=== PATIENT | male | born 1950 | race Caucasian/White ===

== ENCOUNTER 2016-07-11 11:29 | Emergency (ER) | payer OTHER, BC ==
[2016-07-11 11:54] VITALS: TEMP 97.9; BMI 33.9
[2016-07-11 12:31] LABS: BASOPHIL 0.9 % (0-2.0); EOSINOPHIL 5.6 % (0-4.5); MCH 26.8 pg (25.7-33.7); MCHC 33.1 g/dl (32.0-35.9); MEAN CELL VOLUME 81.1 fl (80-96); MEAN PLT VOLUME 6.6 fl (7.5-11.1); PLATELET COUNT 265 K/MM3 (134-434); RDW 15.3 % (11.9-15.9)
--- NOTE | 2016-07-11 12:32 | PDOC ---
History of Present Illness - General History Source: Patient Exam Limitations: No Limitations - History of Present Illness Initial Comments: 07/11/16 13:13 The patient is a 66 year old male with a significant past medical history of diabetes, hypertension, and hyperlipidemia, sent by PCP to the Emergency Department with elevated potassium levels. The patient reports that he had bloodwork done with his PCP and was found to have elevated potassium levels. The patient denies previously having elevated potassium levels. He has no complaints at this time and admits that he feels well. The patient denies muscle fatigue. Patient denies chest pain, shortness of breath, and palpitations. Patient denies kidney problems. Patient denies edema. Patient denies nausea, vomiting, and diarrhea. PCP: Dr. Wiley <Brenda Najera - Last Filed: 07/11/16 13:14> <Maricruz Walter - Last Filed: 07/11/16 13:48> - General Chief Complaint: Revisit, Lab Variance Stated Complaint: ABNORMAL LAB, PCP SENT Past History <Brenda Najera - Last Filed: 07/11/16 13:14> - Past Medical History Anemia: No Asthma: No Cancer: No Cardiac Disorders: No CVA: No COPD: No Dementia: Yes (NIDDM) Diabetes: Yes (NIDDM) Disorders: No HTN: Yes Hypercholesterolemia: Yes Liver Disease: No Seizures: No Thyroid Disease: No - Surgical History Cholecystectomy: No Lung Surgery: No - Psycho/Social/Smoking Cessation Hx Suicidal Ideation: No Smoking History: Never smoked Information on smoking cessation initiated: No Hx Alcohol Use: Yes (RARE) Drug/Substance Use Hx: No Substance Use Type: None Hx Substance Use Treatment: No <Maricruz Walter - Last Filed: 07/11/16 13:48> - Past Medical History Allergies/Adverse Reactions: Allergies Allergy/AdvReac Type Severity Reaction Status Date / Time No Known Allergies Allergy Verified 07/11/16 11:55 Home Medications: Ambulatory Orders Aspirin [Ecotrin] 81 mg PO DAILY 09/06/14 Cholecalciferol (Vitamin D3) [Vitamin D] 250 unit PO DAILY 09/06/14 Docosahexanoic Acid/Epa [Fish Oil Softgel] 1 each PO DAILY 09/06/14 Metformin HCl [Glucophage -] 500 mg PO BID 09/06/14 Ubidecarenone [Co Q-10] 10 mg PO DAILY 09/06/14 Atorvastatin Ca [Lipitor] 20 mg PO HS 07/11/16 Losartan Potassium 25 mg PO DAILY 07/11/16 Review of Systems - Review of Systems Able to Perform ROS?: Yes Comments:: 07/11/16 13:13 CONSTITUTIONAL: Absent: fever, chills, diaphoresis, generalized weakness, malaise, loss of appetite HEENT: Absent: rhinorrhea, nasal congestion, throat pain, throat swelling, difficulty swallowing, mouth swelling, ear pain, eye pain, visual Changes CARDIOVASCULAR: Absent: chest pain, syncope, palpitations, irregular heart rate, lightheadedness , peripheral edema RESPIRATORY: Absent: cough, shortness of breath, dyspnea with exertion, orthopnea, wheezing, stridor, hemoptysis GASTROINTESTINAL: Absent: abdominal pain, abdominal distension, nausea, vomiting, diarrhea, constipation, melena, hematochezia GENITOURINARY: Absent: dysuria, frequency, urgency, hesitancy, hematuria, flank pain, genital pain MUSCULOSKELETAL: Absent: myalgia, arthralgia, joint swelling SKIN: Absent: rash, itching, pallor HEMATOLOGIC/IMMUNOLOGIC: Absent: easy bleeding, easy bruising, lymphadenopathy, frequent infections ENDOCRINE: Absent: unexplained weight gain, unexplained weight loss, heat intolerance, cold intolerance NEUROLOGIC: Absent: headache, focal weakness or paresthesias, dizziness, unsteady gait, seizure, mental status changes, bladder or bowel incontinence PSYCHIATRIC: Absent: anxiety, depression, suicidal or homicidal ideation, hallucinations. <Brenda Najera - Last Filed: 07/11/16 13:14> *Physical Exam - Vital Signs Last Vital Signs Temp Pulse Resp BP Pulse Ox 97.9 F 67 18 145/81 98 07/11/16 11:50 07/11/16 11:50 07/11/16 11:50 07/11/16 11:50 07/11/16 11:50 - Physical Exam Comments: 07/11/16 13:13 GENERAL: Well developed, well nourished. Awake and alert. In no acute distress. HEENT: Normocephalic, atraumatic. PERRLA, EOMI. No conjunctival pallor. Sclera are non- icteric. Moist mucous membranes. Oropharynx is clear. NECK: Supple. Full ROM. No JVD. Carotid pulses 2+ and symmetric, without bruits. No thyromegaly. No lymphadenopathy. CARDIOVASCULAR: Regular rate and rhythm. No murmurs, rubs, or gallops. Distal pulses are 2+ and symmetric. PULMONARY: No evidence of respiratory distress. Lungs clear to auscultation bilaterally. No wheezing, rales or rhonchi. ABDOMINAL: Obese but nontender. Soft. Non-distended. No rebound or guarding. No organomegaly. Normoactive bowel sounds. MUSCULOSKELETAL Normal range of motion at all joints. No bony deformities or tenderness. No CVA tenderness. EXTREMITIES: No cyanosis. No clubbing. No edema. No calf tenderness. SKIN: Warm and dry. Normal capillary refill. No rashes. No jaundice. NEUROLOGICAL: Alert, awake, appropriate. Cranial nerves 2-12 intact. No deficits to light touch and temperature in face, upper extremities and lower extremities. No motor deficits in the in face, upper extremities and lower extremities. Normoreflexic in the upper and lower extremities. Normal speech. Toes are downgoing bilaterally. PSYCHIATRIC: Cooperative. Good eye contact. Appropriate mood and affect. <Brenda Najera - Last Filed: 07/11/16 13:14> - Vital Signs Last Vital Signs Temp Pulse Resp BP Pulse Ox 97.9 F 67 18 145/81 98 07/11/16 11:50 07/11/16 11:50 07/11/16 11:50 07/11/16 11:50 07/11/16 11:50 <Maricruz Walter - Last Filed: 07/11/16 13:48> Heart Score/ECG Review #1 General ECG Interpretation: Sinus Rhythm, Normal Rate (69), Normal Intervals, No acute ischemic changes <Maricruz Walter - Last Filed: 07/11/16 13:48> ED Treatment Course - LABORATORY CBC & Chemistry Diagram: 07/11/16 12:28 07/11/16 12:20 - ADDITIONAL ORDERS Additional order review: 07/11/16 12:28 RBC 6.24 H MCV 81.1 MCHC 33.1 RDW 15.3 MPV 6.6 L Neutrophils % 64.0 Lymphocytes % 21.6 Monocytes % 7.9 Eosinophils % 5.6 H Basophils % 0.9 <Brenda Najera - Last Filed: 07/11/16 13:14> - LABORATORY CBC & Chemistry Diagram: 07/11/16 12:28 07/11/16 12:20 <Maricruz Walter - Last Filed: 07/11/16 13:48> Medical Decision Making - Medical Decision Making 07/11/16 12:30 66 yo M ho DM HTN HLD here wtih elevated potassium per routine outpt labs. no known kidney disease. no c/o muscle pain , cramping, no f/c no cp no sob . no other complaints. pcp dr. Merino. on exam awake, comfortable. lungs clear, heart regular, abd soft Nt. ext no edema. plan: ro lab hemolysis, r/o anemia, ARF and hyperkalemai. ekg r/o changes. will d/w dr. junior. 07/11/16 13:[address] Lee to inform potassium normal will dc home with followup given copy of labs. <Maricruz Walter - Last Filed: 07/11/16 13:48> *DC/Admit/Observation/Transfer - Attestations Scribe Attestion: 07/11/16 13:14 Documentation prepared by Brenda Najera, acting as certified medical coding specialist for Maricruz Walter MD. <Brenda Najera - Last Filed: 07/11/16 13:14> - Discharge Dispostion Admit: No <Maricruz Walter - Last Filed: 07/11/16 13:48> Diagnosis at time of Disposition: Well adult - Referrals Referrals: Raciel Wiley MD [Primary Care Provider] - - Patient Instructions Printed Discharge Instructions: Hyperkalemia Additional Instructions: follow up with dr. Esquivel next week. call to schedule. return for any problems or concerns.
[2016-07-11 13:13] LABS: ALK PHOS 96 U/L (45-117); ANION GAP 7 (8-16); BILIRUBIN,TOTAL 0.5 mg/dL (0.2-1.0); CALCIUM 9.3 mg/dL (8.5-10.1); CO2 29 mmol/L (21-32); CREATININE 0.9 mg/dL (0.7-1.3); GLUCOSE,RANDOM 92 mg/dL (74-106); SGOT/AST 20 U/L (15-37); SGPT/ALT 52 U/L (12-78); TOT PROT 7.5 g/dl (6.4-8.2)
[2016-07-11 14:16] VITALS: BP 130/83; PULSE 61
--- NOTE | 2016-07-13 10:05 | EKG ---
Test Reason : Blood Pressure : / mmHG Vent. Rate : 069 BPM Atrial Rate : 069 BPM P-R Int : 170 ms QRS Dur : 098 ms QT Int : 374 ms P-R-T Axes : 065 035 049 degrees QTc Int : 400 ms SINUS RHYTHM WITH MARKED SINUS ARRHYTHMIA OTHERWISE NORMAL ECG WHEN COMPARED WITH ECG OF 20-AUG-1997 19:48, NO SIGNIFICANT CHANGE WAS FOUND Confirmed by CRIS AVENDANO MD ([id number]) on 07/13/2016 10:05:04 AM Referred By: Confirmed By:CRIS AVENDANO MD
== END 2016-07-11 14:17 | disposition home or self-care (01) ==
LOC: JER 11:29
DX: Z00.00 Encounter for general adult medical examination without abnormal findings (principal); I10 Essential (primary) hypertension; E11.9 Type 2 diabetes mellitus without complications; Z79.84 Long term (current) use of oral hypoglycemic drugs; E78.5 Hyperlipidemia, unspecified
CPT/HCPCS: 36415; 80053; 85025; 93005; 93010; 99283-25

== ENCOUNTER 2019-03-22 13:50 | Inpatient (IN) | payer OTHER, BC ==
--- NOTE | 2019-03-22 14:17 | PDOC ---
Rapid Medical Evaluation Chief Complaint: Headache Time Seen by Provider: 03/22/19 14:10 Medical Evaluation: Allergies Allergy/AdvReac Type Severity Reaction Status Date / Time No Known Allergies Allergy Verified 07/11/16 11:55 03/22/19 14:11 Pt presents for headache and double vision. He states he was seen by his bag shaker Dr. Llanos. Pt then developed headaches. Requesting MRI to r/o stroke/sudden vision loss given new onset headache. Headache currently 10. Exam: PERRLA, EOMI. Orders: labs, IV Pt to proceed to the ER for further evaluation Discharge Disposition - Diagnosis Double vision - Referrals - Patient Instructions - Post Discharge Activity
--- NOTE | 2019-03-22 14:51 | PDOC ---
History of Present Illness - General Chief Complaint: Headache Stated Complaint: HEADACHES Time Seen by Provider: 03/22/19 14:10 History Source: Patient Exam Limitations: No Limitations - History of Present Illness Initial Comments: 68 yo M with a hx of HLD, HTN, NIDDM, and polycythemia vera (per the patient it is genetic; blood letting since last summer) presents to the emergency department with double vision that has been ongoing since Wednesday (03/18/2019) . Per the patient, he says it began while he was driving in his car. He endorses having double vision when looking far away with resolution when looking at objects close up. Denies diplopia when he is looking side to side. He endorses having a headache on the right frontal region yesterday with near resolution today. Endorses the headache of dull nature without radiation. Per the patient, he states the double vision occurs when looking straight but does not occur when looking left and right. The double vision does not occur when close up. Denies the following symptoms: trauma, fevers, chest pain, SOB, urinary and bowel incontinence, neck pain, dizziness, lightheadedness, and ears/ nose/throat pain. Allergies: NKDA NIH Stroke Scale - Last Known Well Date/Time & Onset Date Last Known Well: 03/18/19 Time Last Known Well: 12:00 - Initial Evaluation Level of consciousness: Alert Ask patient the month and their age: Answers both correctly Ask patient to open & close eyes; make fist and let go: Obeys both correctly Best gaze (horizontal eye movement): Partial gaze palsy Visual field testing: No visual field loss Facial paresis (Show teeth/raise eyebrows/close eyes tight): Normal symmetrical movement Motor Function: Left Arm: Normal Motor Function: Right Arm: Normal (extends arm 90 (or 45) degrees for 10 seconds without drift Motor Function: Left Leg: Normal (extends leg 30 degrees for 5 seconds without drift) Motor Function: Right Leg: Normal (extends leg 30 degrees for 5 seconds without drift) Limb Ataxia: No ataxia Sensory(Use pinprick test arms,legs,trunk,face/side to side): Normal Best language (Describe picture, name items, read sentences): No Aphasia Dysarthria (read several words): Normal articulation Extinction and Inattention: No abnormality - Total Score NIH Stroke Scale Score: 1 Past History - Past Medical History Allergies/Adverse Reactions: Allergies Allergy/AdvReac Type Severity Reaction Status Date / Time No Known Allergies Allergy Verified 03/22/19 14:13 Home Medications: Ambulatory Orders Aspirin [Ecotrin] 81 mg PO DAILY 09/06/14 Cholecalciferol (Vitamin D3) [Vitamin D] 250 unit PO DAILY 09/06/14 Docosahexanoic Acid/Epa [Fish Oil Softgel] 1 each PO DAILY 09/06/14 metFORMIN HCL [Glucophage -] 1,000 mg PO BID 09/06/14 Atorvastatin Ca [Lipitor] 40 mg PO DAILY 07/11/16 Losartan Potassium 25 mg PO DAILY 07/11/16 Multivitamin [One-Daily Multi-Vitamin] 1 each PO DAILY 03/22/19 Anemia: No Asthma: No Cancer: No Cardiac Disorders: No CVA: No COPD: No Dementia: Yes (NIDDM) Diabetes: Yes (NIDDM) Disorders: No HTN: Yes Hypercholesterolemia: Yes Liver Disease: No Seizures: No Thyroid Disease: No - Surgical History Cholecystectomy: No Lung Surgery: No - Psycho Social/Smoking Cessation Hx Smoking History: Never smoked Hx Alcohol Use: No Drug/Substance Use Hx: No Substance Use Type: None Hx Substance Use Treatment: No Review of Systems - Review of Systems Able to Perform ROS?: Yes Is the patient limited Slovak proficient: No Constitutional: No: Chills, Diaphoresis, Fever, Weakness HEENTM: Yes: Double Vision. No: Eye Pain, Ear Pain, Nose Pain, Throat Pain, Mouth Pain Respiratory: No: Cough, Shortness of Breath, Hemoptysis Cardiac (ROS): No: Chest Pain, Lightheadedness, Palpitations ABD/GI: No: Constipated, Diarrhea, Nausea, Rectal Bleeding, Vomiting, Tarry Stools : No: Burning, Dysuria, Hematuria Musculoskeletal: No: Back Pain, Joint Pain, Neck Pain Integumentary: No: Bruising, Erythema, Rash Neurological: Yes: Headache (right frontal headache). No: Tingling, Ataxia, Dizziness Psychiatric: No: Stressors, Change in Appetite Endocrine: No: Unexplained Weight Loss Hematologic/Lymphatic: No: Anemia *Physical Exam - Vital Signs Last Vital Signs Temp Pulse Resp BP Pulse Ox 97.9 F 104 H 18 171/104 H 96 03/22/19 14:13 03/22/19 14:13 03/22/19 14:13 03/22/19 14:13 03/22/19 14:13 - Physical Exam General Appearance: Yes: Nourished, Appropriately Dressed. No: Apparent Distress, Intoxicated HEENT: positive: OLGA, Normal Voice, Symmetrical, TMs Normal, Pharynx Normal, Hearing Grossly Normal. negative: EOMI (refer to neuro exam note), Normal ENT Inspection (TM serrous effusion noted in right ear), Pale Conjunctivae, Scleral Icterus (R), Scleral Icterus (L), Muffled/Hoarse voice, Pharyngeal Erythema, Tonsillar Exudate, Tonsillar Erythema, Nasal Congestion, Rhinorrhea, Excessive drooling Neck: positive: Trachea midline, Supple. negative: Tender, Lymphadenopathy (R) , Lymphadenopathy (L), Tender lateral, Tender midline Respiratory/Chest: positive: Lungs Clear, Normal Breath Sounds. negative: Chest Tender, Respiratory Distress, Accessory Muscle Use Cardiovascular: positive: Regular Rhythm, Regular Rate, S1, S2. negative: Systolic Murmur Gastrointestinal/Abdominal: positive: Normal Bowel Sounds, Flat, Soft. negative : Tender, Distended, Guarding, Rebound Lymphatic: negative: Adenopathy Musculoskeletal: positive: Normal Inspection. negative: CVA Tenderness, Vertebral Tenderness Extremity: positive: Normal Capillary Refill, Normal Inspection, Normal Range of Motion. negative: Tender, Swelling, Calf Tenderness Integumentary: positive: Normal Color, Dry, Warm. negative: Rash, Swelling, Ecchymosis Neurologic: positive: Fully Oriented, Alert, Normal Mood/Affect, Normal Response , Motor Strength 5/5, Finger to Nose (intact bilaterally), Other (normal gait without deficit. 20/20 vision bilaterally. Diplopia induced with objects beyond 8 feet. ). negative: submarine element coordinator II-XII NML intact (slight lateral gaze deficit in the right eye. Accomodation reflex intact. 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 Ddx: CN6 palsy secondary to diabetic ischemic lesion vs CVA vs cavernous sinus thrombosis vs temporal arteritis (unlikely given that the patient does not have unilateral vision acuity disturbance (20/20 in both eyes) with associated headache. Laboratory Tests 03/22/19 03/22/19 03/22/19 14:42 14:42 15:00 WBC 11.2 H RBC 7.80 H Hgb 16.6 Hct 52.9 H MCV 67.8 L MCH 21.3 L D MCHC 31.5 L RDW 21.0 H Plt Count 400 D MPV 8.2 D Absolute Neuts (auto) 9.0 H Neutrophils % 80.2 D Lymphocytes % 11.2 D Monocytes % 4.9 Eosinophils % 2.8 Basophils % 0.9 Nucleated RBC % 0 Hypochromia 2+ Platelet Estimate Increased Platelet Comment No clumping noted Polychromasia 1+ Anisocytosis 2+ Microcytosis 1+ ESR 2 Sodium 137 Potassium 4.3 Chloride 105 Carbon Dioxide 24 Anion Gap 8 BUN 12.7 Creatinine 1.0 Est GFR (CKD-EPI)AfAm 88.61 Est GFR (CKD-EPI)NonAf 76.45 Random Glucose 233 H Calcium 9.1 Total Bilirubin 0.5 AST 16 ALT 39 Alkaline Phosphatase 114 C-Reactive Protein < 0.3 Total Protein 7.4 Albumin 3.9 Triglycerides 121 Cholesterol 151 Total LDL Cholesterol [address] head negative for acute pathology Patient to be admitted for suspected CN6 palsy that will require MRI to rule out [employer] process 03/23/19 00:07 Discharge - Discharge Information Problems reviewed: Yes Clinical Impression/Diagnosis: Double vision - Follow up/Referral - Patient Discharge Instructions - Post Discharge Activity
--- NOTE | 2019-03-22 15:02 | PDOC ---
Documentation entered by Bonny Winters SCRIBE, acting as scribe for Marques Steele MD. Marques Steele MD: This documentation has been prepared by the Vianey robles Xhesika, SCRIBE, under my direction and personally reviewed by me in its entirety. I confirm that the documentation accurately reflects all work, treatment, procedures, and medical decision making performed by me. Attending Attestation - Resident Resident Name: Shravan Dickinson - ED Attending Attestation I have performed the following: I have examined & evaluated the patient, The case was reviewed & discussed with the resident, I agree w/resident's findings & plan, Exceptions are as noted - HPI HPI: 03/22/19 14:38 The patient is a 68 year old male with a significant PMH of diabetes, hypertension, and hyperlipidemia who presents to the emergency department for 4days of double vision. Patient states this only occurs when looking straight ahead at objects that are far away. Denies any double vision when looking at objects up close. Also endorses mild R sided headache. No eye pain. No F/C. Pt notes that he was seen by his journeyman level acoustic analyst, who did not find any cause of his double vision and referred him to ED for stroke evaluation. The patient denies chest pain, shortness of breath, blurry vision, headache and dizziness. Denies fever, chills, cough, nausea, vomiting. Allergies: NKDA PCP: Dr. Wiley - Physicial Exam PE: 03/22/19 14:38 GENERAL: Awake, alert, and fully oriented, in no acute distress. HEAD: No signs of trauma EYES: PERRLA, EOMI, sclera anicteric, conjunctiva clear ENT: Auricles normal inspection, hearing grossly normal, nares patent, oropharynx clear without exudates. Moist mucosa NECK: Nontender, no stepoffs, Normal ROM, supple, no lymphadenopathy, JVD, or masses LUNGS: Breath sounds equal, clear to auscultation bilaterally. No wheezes, and no crackles HEART: Regular rate and rhythm, normal S1 and S2, no murmurs, rubs or gallops ABDOMEN: Soft, nontender, normoactive bowel sounds. No guarding, no rebound. No masses EXTREMITIES: Normal range of motion, no edema. No clubbing or cyanosis. No cords, erythema, or tenderness NEUROLOGICAL: Cranial nerves II through XII intact. 5/5 strength and sensation in all extremities, Normal speech, normal gait, normal cerebellar function SKIN: Warm, Dry, normal turgor, no rashes or lesions noted. - Medical Decision Making 03/22/19 15:03 68 M with diplopia x 4 days. Possible mild lateral rectus palsy in R eye. - Labs - Head CT - neuro c/s
[2019-03-22 15:16] LABS: BASO % 0.9 % (0-2.0); EOS % 2.8 % (0-4.5); HEMATOCRIT 52.9 % (35.4-49); HEMOGLOBIN 16.6 GM/dL (11.7-16.9); LYMPH % 11.2 % (8-40); MCH 21.3 pg (25.7-33.7); MCHC 31.5 g/dl (32.0-35.9); MEAN CELL VOLUME 67.8 fl (80-96); MEAN PLT VOLUME 8.2 fl (7.5-11.1); MONO % 4.9 % (3.8-10.2); NEUT % 80.2 % (42.8-82.8); PLATELET COUNT 400 K/MM3 (134-434); WHITE BLOOD COUNT 11.2 K/mm3 (4.0-10.0)
[2019-03-22 16:08] LABS: ALBUMIN 3.9 g/dl (3.4-5.0); ALK PHOS 114 U/L (45-117); ANION GAP 8 MMOL/L (8-16); BILIRUBIN,TOTAL 0.5 mg/dL (0.2-1); BLOOD UREA NITROGEN 12.7 mg/dL (7-18); CALCIUM 9.1 mg/dL (8.5-10.1); CHLORIDE 105 mmol/L (98-107); CHOLESTEROL 151 mg/dL (50-200); CO2 24 mmol/L (21-32); GLUCOSE,RANDOM 233 mg/dL (74-106); HDL CHOLESTEROL 41 mg/dL (40-60); LDL CHOLESTEROL (ONLY SJRH) 93 mg/dL (5-100); POTASSIUM 4.3 mmol/L (3.5-5.1); SGOT/AST 16 U/L (15-37); SGPT/ALT 39 U/L (13-61); SODIUM 137 mmol/L (136-145); TOT PROT 7.4 g/dl (6.4-8.2); TRIGLYCERIDES 121 mg/dL (0-150)
[2019-03-22 16:38] LABS: ANISOCYTOSIS 2+; PLATELET ESTIMATE INCREASED
[2019-03-22] MEDS ORDERED: LOSARTAN POTASSIUM 25 MG TABLET PO ONE (19:36)
--- NOTE | 2019-03-22 19:36 | HP ---
68 M h/o HLD, HTN, T2DM on Metformin, and remote history of polycythemia vera (per the patient it is genetic; blood letting since last summer) presents to the emergency department with double vision that has been ongoing since Wednesday (03/18/2019). Patient endorses having seen his eye doctor , (Dr Llanos) for same CC, where a series of eye tests were done in office, and patient was told to get an outpatient MRI. Patient then began getting headaches yesterday about 5-07/25 so he called his eye doctor whom recommended he went to ED. Currently pt. denies: CP/SOB/LOC/syncope/eye pain/OWEN/neck pain/ hemoptysis/dysphagia/odynophagia/hearing problems/ear pain/URI symptoms. He complains of blurry vision from near and from far, double vision. Endorses he took all his prescribed meds this morning, denies taking any eye drops. PE GA comfortable, AAox3, speaking in full sentences HEENT: loss of R sided abduction, adduction present on both sides, finger to nose intact b/l, normal gait without deficits, no eye globe pain, AKHIL, slight nystagmus with L eye adduction, no signs of CN 7 palsy, no facial droop, no facial numbness/tingling or sensory deficits, baker sign negative, no mastoid bone pain to palpation, no pain to L and R ear on manipulation Chest CTAB, no crackles or wheezing CVS S1, S2+, RRR, no m/r/g Abd Soft, NT, ND, BS+, no guarding Neurologic: positive: Fully Oriented, Alert, Normal Mood/Affect, Normal Response , Motor Strength 5/5 both upper and lower extremities, sensation intact and equal both upper and lower extremities. Psych normal mood and affect Vital Signs - 24 hr 03/22/19 14:13 Temperature 97.9 F Pulse Rate 104 H Respiratory 18 Rate Blood Pressure 171/104 H O2 Sat by Pulse 96 Oximetry (%) Laboratory Results - last 24 hr 03/22/19 03/22/19 03/22/19 14:42 14:42 15:00 WBC 11.2 H RBC 7.80 H Hgb 16.6 Hct 52.9 H MCV 67.8 L MCH 21.3 L D MCHC 31.5 L RDW 21.0 H Plt Count 400 D MPV 8.2 D Absolute Neuts (auto) 9.0 H Neutrophils % 80.2 D Lymphocytes % 11.2 D Monocytes % 4.9 Eosinophils % 2.8 Basophils % 0.9 Nucleated RBC % 0 Hypochromia 2+ Platelet Estimate Increased Platelet Comment No clumping noted Polychromasia 1+ Anisocytosis 2+ Microcytosis 1+ ESR 2 Sodium 137 Potassium 4.3 Chloride 105 Carbon Dioxide 24 Anion Gap 8 BUN 12.7 Creatinine 1.0 Est GFR (CKD-EPI)AfAm 88.61 Est GFR (CKD-EPI)NonAf 76.45 Random Glucose 233 H Calcium 9.1 Total Bilirubin 0.5 AST 16 ALT 39 Alkaline Phosphatase 114 C-Reactive Protein < 0.3 Total Protein 7.4 Albumin 3.9 Triglycerides 121 Cholesterol 151 Total LDL Cholesterol 93 HDL Cholesterol 41 Home Medications Medication Instructions Recorded Aspirin [Ecotrin] 81 mg PO DAILY 09/06/14 Cholecalciferol (Vitamin D3) 250 unit PO DAILY 09/06/14 [Vitamin D] Docosahexanoic Acid/Epa [Fish Oil 1 each PO DAILY 09/06/14 Softgel] metFORMIN HCL [Glucophage -] 1,000 mg PO BID 09/06/14 Atorvastatin Ca [Lipitor] 40 mg PO DAILY 07/11/16 Losartan Potassium 25 mg PO DAILY 07/11/16 Multivitamin [One-Daily 1 each PO DAILY 03/22/19 Multi-Vitamin] Current Medications Generic Name Dose Route Start Last Admin Trade Name Freq PRN Reason Stop Dose Admin Aspirin 81 mg 03/23/19 10:00 Ecotrin - PO DAILY [facility] Atorvastatin Calcium 40 mg 03/22/19 22:00 Lipitor - PO HS [facility] Heparin Sodium (Porcine) 5,000 unit 03/22/19 22:00 Heparin - SQ TID [facility] [place] Insulin Aspart 1 vial 03/22/19 22:00 Novolog Vial Sliding Scale - SQ ACHS [facility] Protocol Losartan Potassium 25 mg 03/23/19 10:00 Cozaar - PO DAILY [facility] A/P: 68 M h/o NIDDM, HTN, HLD, remote h/o polycythemia vera s/p ?phlebotomies, now presenting with isolated R CN 6 palsy w/ diploplia and loss of R lateral gaze. Right CN [address]-brain unremarkable for acute CVA, will need MRI for more detail control BP, strict glycemic control, R eye patching Neuro consult: Dr Maria HTN restart Losartan, increase as needed HLD restart statin, obtain Lipid panel/A1c/TSH/RPR/B12 Remote history of PV ?stroke to present as isolated Cn 6 palsy, not likely obtain Hematology evaluation in view of CN 6 palsy and high normal H/H Heme consult: Dr Mi DVT ppx: Lovenox SC FEN: no IVF/daily chem/Na/DM diet Visit type - Emergency Visit Emergency Visit: Yes ED Registration Date: 03/22/19 Care time: The patient presented to the Emergency Department on the above date and was hospitalized for further evaluation of their emergent condition. - New Patient This patient is new to me today: Yes Date on this admission: 03/22/19 - Critical Care Critical Care patient: No
[2019-03-22] MEDS ORDERED: LOSARTAN POTASSIUM 50 MG TABLET (FP) ONE (19:58)
[2019-03-22] MEDS ORDERED: HEPARIN NA (PORCINE) 5,000 UNITS/ML 1ML VIAL ONE (22:22)
[2019-03-22] MEDS ORDERED: ATORVASTATIN CA 40 MG TABLET (FP) ONE (22:22)
[2019-03-22] MEDS: ATORVASTATIN CA 40 MG TABLET (FP) PO SCH (22:26)
[2019-03-22] MEDS: HEPARIN NA (PORCINE) 5,000 UNITS/ML 1ML VIAL SQ SCH (22:26)
[2019-03-22] MEDS: INSULIN SLIDING SCALE (NOVOLOG) 1 VIAL SQ SCH (22:36)
[2019-03-23] MEDS ORDERED: ACETAMINOPHEN 325 MG TABLET (FP) PO PRN (01:12)
[2019-03-23] MEDS ORDERED: ACETAMINOPHEN 325 MG TABLET (FP) ONE (01:18)
[2019-03-23 06:02] VITALS: BMI 24.7
[2019-03-23] MEDS ORDERED: INSULIN (NOVOLOG) ASPART 100 UNITS/ML 10ML VIAL ONE (06:28)
[2019-03-23] MEDS: HEPARIN NA (PORCINE) 5,000 UNITS/ML 1ML VIAL SQ SCH ×3 (06:47→21:37)
[2019-03-23] MEDS: INSULIN SLIDING SCALE (NOVOLOG) 1 VIAL SQ SCH ×4 (06:47→21:40)
[2019-03-23 07:38] LABS: BASO % 1.2 % (0-2.0); EOS % 8.3 % (0-4.5); HEMATOCRIT 50.7 % (35.4-49); HEMOGLOBIN 15.9 GM/dL (11.7-16.9); LYMPH % 13.9 % (8-40); MCH 21.2 pg (25.7-33.7); MCHC 31.4 g/dl (32.0-35.9); MEAN CELL VOLUME 67.5 fl (80-96); MEAN PLT VOLUME 8.2 fl (7.5-11.1); MONO % 7.3 % (3.8-10.2); NEUT % 69.3 % (42.8-82.8); PLATELET COUNT 359 K/MM3 (134-434); RDW 20.3 % (11.9-15.9); WHITE BLOOD COUNT 8.6 K/mm3 (4.0-10.0)
[2019-03-23 08:06] LABS: RBC 7.51 M/mm3 (4.00-5.60)
[2019-03-23 08:14] LABS: ALBUMIN 3.6 g/dl (3.4-5.0); BILIRUBIN,TOTAL 0.7 mg/dL (0.2-1); BLOOD UREA NITROGEN 17.3 mg/dL (7-18); CALCIUM 8.8 mg/dL (8.5-10.1); CREATININE 0.8 mg/dL (0.55-1.3); POTASSIUM 4.3 mmol/L (3.5-5.1); TOT PROT 6.5 g/dl (6.4-8.2)
[2019-03-23] MEDS: LOSARTAN POTASSIUM 50 MG TABLET (FP) PO SCH (09:33)
[2019-03-23] MEDS ORDERED: ASPIRIN COATED 81 MG TABLET.EC PO SCH (10:00)
[2019-03-23] MEDS ORDERED: LOSARTAN POTASSIUM 25 MG TABLET PO SCH (10:00)
--- NOTE | 2019-03-23 11:05 | CONSULT ---
Consultation: REQUESTING PROVIDER: CONSULT SERVICE: Hematology/Oncology HISTORY OF PRESENT ILLNESS: 68yo M with h/o polycythemia vera, HLD, HTN, T2DM on Metformin who presents originally due to diplopia found to have CN palsy on exam and admitted for stroke workup. We were asked to evaluate him due to his polycythemia vera. Pt has been overseen by Dr. Wheeler (dx'd JAK2+ 08/2018). Pt has been phlebotomized 3 occassions since previous summer. His most recent session was 2 months ago from presentation today. Pt reports a slight headache which has been improving with tylenol therapy. Otherwise pt's initial symptoms have since resolved and he denies any blurry vision, lightheadedness, cough, SOB, CP, neck pain, palpitations, abdominal pain. PMHx: As above PSHx: Denies SoHx: Tobacco - None Alcohol - None Drugs - None REVIEW OF SYSTEMS: As per HPI. PHYSICAL EXAMINATION Vital Signs - 24 hr 03/22/19 03/22/19 03/23/19 14:13 20:29 00:00 Temperature 97.9 F 97.9 F 97 F L Pulse Rate 104 H 68 Pulse Rate [ 58 L Apical] Respiratory 18 20 18 Rate Blood Pressure 171/104 H 131/75 Blood Pressure 107/59 L [Right Arm] O2 Sat by Pulse 96 95 Oximetry (%) 03/23/19 03/23/19 03/23/19 02:28 04:00 04:30 Temperature 97.5 F L 97.7 F Pulse Rate 64 57 L Pulse Rate [ Apical] Respiratory 20 20 18 Rate Blood Pressure 141/85 145/75 Blood Pressure [Right Arm] O2 Sat by Pulse 95 95 Oximetry (%) 03/23/19 03/23/19 09:00 10:00 Temperature Pulse Rate 73 Pulse Rate [ Apical] Respiratory 18 20 Rate Blood Pressure 154/74 Blood Pressure [Right Arm] O2 Sat by Pulse 97 Oximetry (%) PE GEN: comfortable, AAox3, speaking in full sentences HEENT: NC/AT, EOMI, TAYLA, no nystagmus seen, MMM NECK: No JVD, No bruits LUNG: CTA b/l without wheezing CARD: RRR no murmurs appreciated S1/2 normal ABD: Soft, NT/ND, normoactive BS, no guarding, no splenomegaly, no hepatomegaly NEURO: A&Ox3, CN II-XII intact currently. Strength grossly 5/5. sensation 5/5 throughout. Patella DTR 2/4 Psych: normal mood and affect Laboratory Results - last 24 hr 03/22/19 03/22/19 03/22/19 14:42 14:42 15:00 WBC 11.2 H RBC 7.80 H Hgb 16.6 Hct 52.9 H MCV 67.8 L MCH 21.3 L D MCHC 31.5 L RDW 21.0 H Plt Count 400 D MPV 8.2 D Absolute Neuts (auto) 9.0 H Neutrophils % 80.2 D Lymphocytes % 11.2 D Monocytes % 4.9 Eosinophils % 2.8 Basophils % 0.9 Nucleated RBC % 0 Hypochromia 2+ Platelet Estimate Increased Platelet Comment No clumping noted Polychromasia 1+ Anisocytosis 2+ Microcytosis 1+ ESR 2 Sodium 137 Potassium 4.3 Chloride 105 Carbon Dioxide 24 Anion Gap 8 BUN 12.7 Creatinine 1.0 Est GFR (CKD-EPI)AfAm 88.61 Est GFR (CKD-EPI)NonAf 76.45 POC Glucometer Random Glucose 233 H Hemoglobin A1c % Calcium 9.1 Iron TIBC Iron Saturation Unsaturated IBC Total Bilirubin 0.5 AST 16 ALT 39 Alkaline Phosphatase 114 C-Reactive Protein < 0.3 Total Protein 7.4 Albumin 3.9 Triglycerides 121 Cholesterol 151 Total LDL Cholesterol 93 HDL Cholesterol 41 TSH 03/22/19 03/23/19 03/23/19 22:33 05:50 06:44 WBC 8.6 RBC 7.51 H Hgb 15.9 Hct 50.7 H MCV 67.5 L MCH 21.2 L MCHC 31.4 L RDW 20.3 H Plt Count 359 MPV 8.2 Absolute Neuts (auto) 6.0 Neutrophils % 69.3 Lymphocytes % 13.9 D Monocytes % 7.3 Eosinophils % 8.3 H D Basophils % 1.2 Nucleated RBC % 0 Hypochromia Platelet Estimate Platelet Comment Polychromasia Anisocytosis Microcytosis ESR Sodium Potassium Chloride Carbon Dioxide Anion Gap BUN Creatinine Est GFR (CKD-EPI)AfAm Est GFR (CKD-EPI)NonAf POC Glucometer 137 159 Random Glucose Hemoglobin A1c % Calcium Iron TIBC Iron Saturation Unsaturated IBC Total Bilirubin AST ALT Alkaline Phosphatase C-Reactive Protein Total Protein Albumin Triglycerides Cholesterol Total LDL Cholesterol HDL Cholesterol TSH 02/06/20 02/06/20 06:44 06:44 WBC RBC Hgb Hct MCV MCH MCHC RDW Plt Count MPV Absolute Neuts (auto) Neutrophils % Lymphocytes % Monocytes % Eosinophils % Basophils % Nucleated RBC % Hypochromia Platelet Estimate Platelet Comment Polychromasia Anisocytosis Microcytosis ESR Sodium 140 Potassium 4.3 Chloride 108 H Carbon Dioxide 26 Anion Gap 6 L BUN 17.3 Creatinine 0.8 Est GFR (CKD-EPI)AfAm 105.64 Est GFR (CKD-EPI)NonAf 91.15 POC Glucometer Random Glucose 130 H Hemoglobin A1c % 7.1 H Calcium 8.8 Iron 34 L TIBC 355 Iron Saturation 9 L Unsaturated IBC 321 H Total Bilirubin 0.7 AST 12 L ALT 33 Alkaline Phosphatase 103 C-Reactive Protein Total Protein 6.5 Albumin 3.6 Triglycerides Cholesterol Total LDL Cholesterol HDL Cholesterol TSH 1.32 Active Medications Generic Name Dose Route Start Last Admin Trade Name Freq PRN Reason Stop Dose Admin Acetaminophen 650 mg 03/23/19 01:12 03/23/19 01:24 Tylenol - PO 650 mg Q6H PRN Administration PAIN LEVEL 6-10 Aspirin 81 mg 03/23/19 10:00 03/23/19 09:33 Ecotrin - PO 81 mg DAILY PATY Administration Atorvastatin Calcium 40 mg 03/22/19 22:00 03/22/19 22:26 Lipitor - PO 40 mg HS PATY Administration Heparin Sodium (Porcine) 5,000 unit 03/22/19 22:00 03/23/19 06:47 Heparin - SQ 5,000 unit TID PATY Administration Insulin Aspart 1 vial 03/22/19 22:00 03/23/19 06:47 Novolog Vial Sliding Scale - SQ 2 units ACHS PATY Administration Protocol Losartan Potassium 50 mg 03/23/19 10:00 03/23/19 09:33 Cozaar - PO 50 mg DAILY PATY Administration ASSESSMENT/PLAN: Pocythemia Vera HTN HLD NIDDM --Jak2 positive confirmed with Dr. Manuela Wheeler --Per Dr. Wheeler pt was to start on JAKafi medication --Phlebotomized 1U PRBC for HCT <50 --Monitor H/H --Continu ASA 81 mg qdaily --Will discuss with neurology regarding plan Case discussed with Dr. Hiwot Garcia, DO - IM PGY-3 Visit type - Emergency Visit Emergency Visit: Yes ED Registration Date: 03/22/19 Care time: The patient presented to the Emergency Department on the above date and was hospitalized for further evaluation of their emergent condition. - New Patient This patient is new to me today: Yes Date on this admission: 03/22/19 - Critical Care Critical Care patient: No ATTENDING PHYSICIAN STATEMENT I saw and evaluated the patient. I reviewed the resident's note and discussed the case with the resident. I agree with the resident's findings and plan as documented. SUBJECTIVE: OBJECTIVE: ASSESSMENT AND PLAN:
--- NOTE | 2019-03-23 14:27 | EKG ---
Test Reason : Blood Pressure : / mmHG Vent. Rate : 097 BPM Atrial Rate : 097 BPM P-R Int : 168 ms QRS Dur : 090 ms QT Int : 334 ms P-R-T Axes : 063 000 043 degrees QTc Int : 424 ms NORMAL SINUS RHYTHM INFERIOR INFARCT , AGE UNDETERMINED CANNOT RULE OUT ANTERIOR INFARCT , AGE UNDETERMINED ABNORMAL ECG WHEN COMPARED WITH ECG OF 11-JUL-2016 12:20, INFERIOR INFARCT IS NOW PRESENT Confirmed by MELISSA TAVERA, WOOD ([id number]) on 03/23/2019 2:27:16 PM Referred By: Confirmed By:WOOD TORRES MD
--- NOTE | 2019-03-23 16:40 | PN ---
Physical Exam: SUBJECTIVE: Patient seen and examined at the bedside. still c/o of double vision. denies headaches at this time. no chest pain. OBJECTIVE: The patient is a 68 year old male with a significant past medical history of polycythemia vera, diabetes, hypertension, and hyperlipidemia who presents to the emergency department for 4days of double vision. double vision only upon objects that are at a distance, no double vision when looking at objects close up. He presented with a headache, but denies headache now. No eye pain, no eye discharge. He was sent by his opthomologist who did not find cause of double vision and sent him to the ED for stoke rule out. The patient denies chest pain, shortness of breath, blurry vision, headache and dizziness. Denies fever, chills, cough, nausea, vomiting. brain mri: moderate atrophy and mild to moderate periventicular chronic microvascular ischemia. no acute infarct. Vital Signs Period Temp Pulse Resp BP Sys/Domingo Pulse Ox Last 24 Hr 97 F-98.4 F 57-88 18-20 107-154/59-85 95-97 GENERAL: The patient is awake, alert, and fully oriented, in no acute distress. HEAD: Normal with no signs of trauma. EYES: PERRL, extraocular movements intact, sclera anicteric, conjunctiva clear. No ptosis. ENT: Ears normal, nares patent, oropharynx clear without exudates, moist mucous membranes. NECK: Trachea midline, full range of motion, supple. LUNGS: Breath sounds equal, clear to auscultation bilaterally r gallop. ABDOMEN: Soft, nontender, nondistended, normoactive bowel sounds, no guarding, no rebound, no hepatosplenomegaly, no masses. EXTREMITIES: 2+ pulses, warm, well-perfused, no edema. NEUROLOGICAL: Normal speech, gait not observed. PSYCH: Normal mood, normal affect. SKIN: Warm, dry, normal turgor, no rashes or lesions noted Laboratory Results - last 24 hr 03/22/19 03/22/19 03/22/19 14:42 15:00 22:33 WBC RBC Hgb Hct MCV MCH MCHC RDW Plt Count MPV Absolute Neuts (auto) Neutrophils % Lymphocytes % Monocytes % Eosinophils % Basophils % Nucleated RBC % Hypochromia 2+ Platelet Estimate Increased Platelet Comment No clumping noted Polychromasia 1+ Anisocytosis 2+ Microcytosis 1+ ESR 2 Sodium Potassium Chloride Carbon Dioxide Anion Gap BUN Creatinine Est GFR (CKD-EPI)AfAm Est GFR (CKD-EPI)NonAf POC Glucometer 137 Random Glucose Hemoglobin A1c % Calcium Iron TIBC Iron Saturation Unsaturated IBC Total Bilirubin AST ALT Alkaline Phosphatase Total Protein Albumin TSH RPR Titer 03/23/19 03/23/19 03/23/19 05:50 06:44 06:44 WBC 8.6 RBC 7.51 H Hgb 15.9 Hct 50.7 H MCV 67.5 L MCH 21.2 L MCHC 31.4 L RDW 20.3 H Plt Count 359 MPV 8.2 Absolute Neuts (auto) 6.0 Neutrophils % 69.3 Lymphocytes % 13.9 D Monocytes % 7.3 Eosinophils % 8.3 H D Basophils % 1.2 Nucleated RBC % 0 Hypochromia Platelet Estimate Platelet Comment Polychromasia Anisocytosis Microcytosis ESR Sodium 140 Potassium 4.3 Chloride 108 H Carbon Dioxide 26 Anion Gap 6 L BUN 17.3 Creatinine 0.8 Est GFR (CKD-EPI)AfAm 105.64 Est GFR (CKD-EPI)NonAf 91.15 POC Glucometer 159 Random Glucose 130 H Hemoglobin A1c % Calcium 8.8 Iron 34 L TIBC 355 Iron Saturation 9 L Unsaturated IBC 321 H Total Bilirubin 0.7 AST 12 L ALT 33 Alkaline Phosphatase 103 Total Protein 6.5 Albumin 3.6 TSH 1.32 RPR Titer 03/23/19 03/23/19 03/23/19 06:44 06:44 11:48 WBC RBC Hgb Hct MCV MCH MCHC RDW Plt Count MPV Absolute Neuts (auto) Neutrophils % Lymphocytes % Monocytes % Eosinophils % Basophils % Nucleated RBC % Hypochromia Platelet Estimate Platelet Comment Polychromasia Anisocytosis Microcytosis ESR Sodium Potassium Chloride Carbon Dioxide Anion Gap BUN Creatinine Est GFR (CKD-EPI)AfAm Est GFR (CKD-EPI)NonAf POC Glucometer 139 Random Glucose Hemoglobin A1c % 7.1 H Calcium Iron TIBC Iron Saturation Unsaturated IBC Total Bilirubin AST ALT Alkaline Phosphatase Total Protein Albumin TSH RPR Titer Nonreactive Active Medications Generic Name Dose Route Start Last Admin Trade Name Freq PRN Reason Stop Dose Admin Acetaminophen 650 mg 03/23/19 01:12 03/23/19 01:24 Tylenol - PO 650 mg Q6H PRN Administration PAIN LEVEL 6-10 Aspirin 81 mg 03/23/19 10:00 03/23/19 09:33 Ecotrin - PO 81 mg DAILY PATY Administration Atorvastatin Calcium 40 mg 03/22/19 22:00 03/22/19 22:26 Lipitor - PO 40 mg HS PATY Administration Heparin Sodium (Porcine) 5,000 unit 03/22/19 22:00 03/23/19 13:56 Heparin - SQ 5,000 unit TID PATY Administration Insulin Aspart 1 vial 03/22/19 22:00 03/23/19 11:56 Novolog Vial Sliding Scale - SQ Not Given ACHS [facility] Protocol Losartan Potassium 50 mg 03/23/19 10:00 03/23/19 09:33 Cozaar - PO 50 mg DAILY PATY Administration ASSESSMENT/PLAN: Neuro: Right cranial nerve palsy CT negative for acute CVA, Brain MRI negative BP stable goal is to maintain bgms <150 fasting neuro following, awaiting further recommendations Cardiology: Hypertension On Cozaar 50mg daily BP stable Hyperlipidemia on Lipitor 40mg daily Hematology: Polycthemia Vera, patient has been following private timber buyer as an outpatient hematology following while inpatient recommendations appreciated daily CBC fen tolerating diabetic diet monitor electrolytes full code Visit type - Emergency Visit Emergency Visit: Yes ED Registration Date: 03/22/19 Care time: The patient presented to the Emergency Department on the above date and was hospitalized for further evaluation of their emergent condition. - New Patient This patient is new to me today: Yes Date on this admission: 04/08/19 - Critical Care Critical Care patient: No - Discharge Referral Referred to [facility] Med [facility].C.: No
--- NOTE | 2019-03-23 18:22 | CONSULT ---
Consult - text type - Consultation Consultation Note: 68 yo M with a hx of HLD, HTN, NIDDM, and polycythemia vera (per the patient it was diagnosed 08/2018, JAK2+, followed by Dr. Wheeler) phlebotomized 3x since last summer, ;last 2 months ago, presents to the emergency department with double vision that has been ongoing since Wednesday (03/18/2019). Per the patient , he says it began while he was driving in his car. He endorses having a headaches since Wednesday. Was seen by press helper on 03/20/[address] head negative Allergies: NKDA Past History - Past Medical History Allergies/Adverse Reactions: Allergies Allergy/AdvReac Type Severity Reaction Status Date / Time No Known Allergies Allergy Verified 03/22/19 14:13 Home Medications: Ambulatory Orders Aspirin [Ecotrin] 81 mg PO DAILY 09/06/14 Cholecalciferol (Vitamin D3) [Vitamin D] 250 unit PO DAILY 09/06/14 Docosahexanoic Acid/Epa [Fish Oil Softgel] 1 each PO DAILY 09/06/14 metFORMIN HCL [Glucophage -] 1,000 mg PO BID 09/06/14 Atorvastatin Ca [Lipitor] 40 mg PO DAILY 07/11/16 Losartan Potassium 25 mg PO DAILY 07/11/16 Multivitamin [One-Daily Multi-Vitamin] 1 each PO DAILY 03/22/19 PMH HTN: Yes Hypercholesterolemia: Yes - Psycho Social/Smoking Cessation Hx Smoking History: Never smoked - Vital Signs Last Vital Signs Temp Pulse Resp BP Pulse Ox 98.4 F 88 20 136/76 97 03/23/19 14:00 03/23/19 14:00 03/23/19 10:00 03/23/19 14:00 03/23/19 09:00 Cor: RSR, No murmurs, No gallops Lungs: Clear to P&A Abd: Soft, Normal bowel sounds, No organomegaly Ext:No significant edema Skin: No rashes, Integument intact Abnormal Lab Results 03/23/19 03/23/19 03/23/19 06:44 06:44 06:44 RBC 7.51 H Hct 50.7 H MCV 67.5 L MCH 21.2 L MCHC 31.4 L RDW 20.3 H Eosinophils % 8.3 H D Chloride 108 H Anion Gap 6 L Random Glucose 130 H Hemoglobin A1c % 7.1 H Iron 34 L Iron Saturation 9 L Unsaturated IBC 321 H AST 12 L Active Medications Generic Name Dose Route Start Last Admin Trade Name Lori PRN Reason Stop Dose Admin Acetaminophen 650 mg 03/23/19 01:12 03/23/19 01:24 Tylenol - PO 650 mg Q6H PRN Administration PAIN LEVEL 6-10 Aspirin 81 mg 03/23/19 10:00 03/23/19 09:33 Ecotrin - PO 81 mg DAILY PATY Administration Atorvastatin Calcium 40 mg 03/22/19 22:00 03/22/19 22:26 Lipitor - PO 40 mg HS PATY Administration Heparin Sodium (Porcine) 5,000 unit 03/22/19 22:00 03/23/19 13:56 Heparin - SQ 5,000 unit TID PATY Administration Sodium Chloride 500 mls @ 75 mls/hr 03/23/19 18:30 Normal Saline - IV ASDIR PATY Insulin Aspart 1 vial 03/22/19 22:00 03/23/19 16:48 Novolog Vial Sliding Scale - SQ 2 units ACHS PATY Administration Protocol Losartan Potassium 50 mg 03/23/19 10:00 03/23/19 09:33 Cozaar - PO 50 mg DAILY PATY Administration A/P 68 yo M with a hx of HLD, HTN, NIDDM, and polycythemia vera (per the patient it was diagnosed 08/2018, JAK2+, followed by Dr. Wheeler) phlebotomized 3x since last summer, ;last 2 months ago, presents to the emergency department with double vision that has been ongoing since Wednesday (03/18/2019). Per the patient , he says it began while he was driving in his car. He endorses having a headaches since Wednesday. Was seen by press helper on 03/20/[address] head negative h/o polycythemia vera , JAK2 positive--diagnosed 09/02, followed by Dr. Manuela wheeler s/p phlebotomy x 3 --last 2 months ago Discussed with primary oncologist Dr. valladares Planning on startingJAKAFI Will phlebotomize 1 unit blood for Hct 50 continue ASA 81mg Discussed with neurologist Dr. Crow adame
[2019-03-23] MEDS ORDERED: SODIUM CHLORIDE 500 ML IV SCH (18:30)
--- NOTE | 2019-03-23 18:52 | PN ---
Progress Note (short form) - Note Progress Note: 1 unit --470ml of blood phlebotomized via left fore arm
--- NOTE | 2019-03-23 18:59 | CON.NEURO ---
Consult Consult Specialty:: Crow Referred by:: ER Reason for Consultation:: Diplopia - History of Present Illness History of Present Illness: this is a very pleasant 68-year-old right-handed man with multiple medical problems with history of coronary artery disease osteoarthritis history of non- insulin-dependent diabetes history of polycythemia vera follows with the oncologist according to patient he has been having increasing difficulty with double vision patient came into the hospital for 3 days history of double vision most upon driving CAT scan of the head revealed no evidence of acute pathology I saw the patient on telemetry no evidence of cardiac arrhythmia patient was evaluated by the oncologist patient was supposed to go for a phlebotomy - History Source History Provided By: Patient Limitations to Obtaining History: No Limitations - Alcohol/Substance Use Hx Alcohol Use: No - Smoking History Smoking history: Never smoked Have you smoked in the past 12 months: No Home Medications - Allergies Allergies/Adverse Reactions: Allergies Allergy/AdvReac Type Severity Reaction Status Date / Time No Known Allergies Allergy Verified 03/22/19 14:13 - Home Medications Home Medications: Ambulatory Orders Aspirin [Ecotrin] 81 mg PO DAILY 09/06/14 Cholecalciferol (Vitamin D3) [Vitamin D] 250 unit PO DAILY 09/06/14 Docosahexanoic Acid/Epa [Fish Oil Softgel] 1 each PO DAILY 09/06/14 metFORMIN HCL [Glucophage -] 1,000 mg PO BID 09/06/14 Atorvastatin Ca [Lipitor] 40 mg PO DAILY 07/11/16 Losartan Potassium 25 mg PO DAILY 07/11/16 Multivitamin [One-Daily Multi-Vitamin] 1 each PO DAILY 03/22/19 Family Medical History Family History: Unremarkable Review of Systems - Review of Systems Constitutional: reports: No Symptoms Eyes: reports: No Symptoms Neurological: reports: Dizziness, Headache, Incoordination, Numbness Physical Exam-Neuro Vital Signs: Vital Signs Temperature 98.4 F 03/23/19 14:00 Pulse Rate 88 03/23/19 14:00 Respiratory Rate 03/23/19 10:00 Blood Pressure 136/76 03/23/19 14:00 O2 Sat by Pulse Oximetry (%) 97 03/23/19 09:00 Constitutional: Yes: Well Nourished Neck: Yes: WNL Cardiovascular: Yes: WNL Labs: CBC, BMP 03/23/19 06:44 03/23/19 06:44 - Neuro Exam Level Of Consciousness: Yes: Oriented to Person, Oriented to Place, Oriented to Time Eyes: Yes: PERRLA Speech: WNL Dominant Hand: Right Cranial Nerves II-XII Intact: Yes Gag: Present DTR's: 1+ Left Bicep, 1+ Right Bicep, 1+ Left Tricep, 1+ Right Tricep Imaging - Results X-ray: Image Reviewed MRI: Image Reviewed Problem List - Problems (1) Double vision Code(s): H53.2 - DIPLOPIA Assessment/Plan no evidence of brainstem ischemia on the MRI and CAT scan Questionable myasthenia gravis Blood work Continue baby aspirin ESR and C-reactive protein Thank you very much for allowing me to be part of this patient's neurological care. Marissa Maria MD
--- NOTE | 2019-03-23 19:50 | PN ---
Progress Note (short form) - Note Progress Note: I reevaluated the patient ocular motility Patient with right nerve palsy C duplex Full Asa Weight loss Tight BSL control Problem List - Problems (1) Double vision Code(s): H53.2 - DIPLOPIA
[2019-03-23] MEDS: ATORVASTATIN CA 40 MG TABLET (FP) PO SCH (21:37)
[2019-03-24] MEDS: HEPARIN NA (PORCINE) 5,000 UNITS/ML 1ML VIAL SQ SCH ×2 (05:50→14:18)
[2019-03-24] MEDS: INSULIN SLIDING SCALE (NOVOLOG) 1 VIAL SQ SCH ×2 (06:42→14:18)
[2019-03-24 07:43] LABS: EOS % 8.1 % (0-4.5); HEMOGLOBIN 15.5 GM/dL (11.7-16.9); LYMPH % 12.9 % (8-40); MCH 21.5 pg (25.7-33.7); MCHC 31.7 g/dl (32.0-35.9); MEAN CELL VOLUME 67.9 fl (80-96); MEAN PLT VOLUME 8.3 fl (7.5-11.1); MONO % 7.3 % (3.8-10.2); NEUT % 70.7 % (42.8-82.8); PLATELET COUNT 353 K/MM3 (134-434); RDW 20.3 % (11.9-15.9); WHITE BLOOD COUNT 9.8 K/mm3 (4.0-10.0)
[2019-03-24 08:01] LABS: RBC 7.22 M/mm3 (4.00-5.60)
[2019-03-24 08:09] LABS: INR 1.13 (0.83-1.09); PROTHROMBIN TIME (PATIENT) 13.3 SEC (9.7-13.0)
[2019-03-24 08:11] LABS: ACTIVATED PTT 30.7 SECONDS (25.2-36.5)
[2019-03-24 08:13] LABS: ALBUMIN 3.4 g/dl (3.4-5.0); BILIRUBIN,TOTAL 0.7 mg/dL (0.2-1); BLOOD UREA NITROGEN 14.3 mg/dL (7-18); CALCIUM 8.6 mg/dL (8.5-10.1); CREATININE 0.8 mg/dL (0.55-1.3); MAGNESIUM 2.3 mg/dL (1.8-2.4); POTASSIUM 4.2 mmol/L (3.5-5.1); TOT PROT 6.5 g/dl (6.4-8.2)
[2019-03-24] MEDS ORDERED: ASPIRIN 325 MG TABLET PO SCH (10:00)
[2019-03-24] MEDS: LOSARTAN POTASSIUM 50 MG TABLET (FP) PO SCH (11:12)
[2019-03-24 14:39] VITALS: BP 131/78; PULSE 72; TEMP 97.7
--- NOTE | 2019-03-24 16:10 | DS ---
Physical Exam: SUBJECTIVE: Patient seen and examined OBJECTIVE: The patient is a 68 year old male with a significant past medical history of polycythemia vera, diabetes, hypertension, and hyperlipidemia who presents to the emergency department for 4days of double vision. double vision only upon objects that are at a distance, no double vision when looking at objects close up. He presented with a headache, but denies headache now. No eye pain, no eye discharge. He was sent by his opthomologist who did not find cause of double vision and sent him to the ED for stoke rule out. The patient denies chest pain, shortness of breath, blurry vision, headache and dizziness. Denies fever, chills, cough, nausea, vomiting. brain mri: moderate atrophy and mild to moderate periventicular chronic microvascular ischemia. no acute infarct. Vital Signs Period Temp Pulse Resp BP Sys/Domingo Pulse Ox Last 24 Hr 97.5 F-98.4 F 66-87 20-20 131-164/71-99 96 PHYSICAL EXAM GENERAL: The patient is awake, alert, and fully oriented, in no acute distress. HEAD: Normal with no signs of trauma. EYES: PERRL, extraocular movements intact, sclera anicteric, conjunctiva clear. No ptosis. ENT: Ears normal, nares patent, oropharynx clear without exudates, moist mucous membranes. NECK: Trachea midline, full range of motion, supple. LUNGS: Breath sounds equal, clear to auscultation bilaterally r gallop. ABDOMEN: Soft, nontender, nondistended, normoactive bowel sounds, no guarding, no rebound, no hepatosplenomegaly, no masses. EXTREMITIES: 2+ pulses, warm, well-perfused, no edema. NEUROLOGICAL: Normal speech, gait not observed. PSYCH: Normal mood, normal affect. SKIN: Warm, dry, normal turgor, no rashes or lesions noted. LABS Laboratory Results - last 24 hr 03/23/19 03/23/19 03/24/19 16:46 21:35 06:13 WBC RBC Hgb Hct MCV MCH MCHC RDW Plt Count MPV Absolute Neuts (auto) Neutrophils % Lymphocytes % Monocytes % Eosinophils % Basophils % Nucleated RBC % ESR 1 PT with INR INR PTT (Actin FS) Sodium Potassium Chloride Carbon Dioxide Anion Gap BUN Creatinine Est GFR (CKD-EPI)AfAm Est GFR (CKD-EPI)NonAf POC Glucometer 214 181 Random Glucose Calcium Magnesium Total Bilirubin AST ALT Alkaline Phosphatase Total Protein Albumin 03/24/19 03/24/19 03/24/19 06:13 06:13 06:13 WBC 9.8 RBC 7.22 H Hgb 15.5 Hct 49.0 MCV 67.9 L MCH 21.5 L MCHC 31.7 L RDW 20.3 H Plt Count 353 MPV 8.3 Absolute Neuts (auto) 6.9 Neutrophils % 70.7 Lymphocytes % 12.9 Monocytes % 7.3 Eosinophils % 8.1 H Basophils % 1.0 Nucleated RBC % 0 ESR PT with INR 13.30 H INR 1.13 H PTT (Actin FS) 30.7 Sodium 138 Potassium 4.2 Chloride 106 Carbon Dioxide 25 Anion Gap 7 L BUN 14.3 Creatinine 0.8 Est GFR (CKD-EPI)AfAm 105.64 Est GFR (CKD-EPI)NonAf 91.15 POC Glucometer Random Glucose 139 H Calcium 8.6 Magnesium 2.3 Total Bilirubin 0.7 AST 12 L ALT 31 Alkaline Phosphatase 100 Total Protein 6.5 Albumin 3.4 03/24/19 03/24/19 06:35 14:08 WBC RBC Hgb Hct MCV MCH MCHC RDW Plt Count MPV Absolute Neuts (auto) Neutrophils % Lymphocytes % Monocytes % Eosinophils % Basophils % Nucleated RBC % ESR PT with INR INR PTT (Actin FS) Sodium Potassium Chloride Carbon Dioxide Anion Gap BUN Creatinine Est GFR (CKD-EPI)AfAm Est GFR (CKD-EPI)NonAf POC Glucometer 163 165 Random Glucose Calcium Magnesium Total Bilirubin AST ALT Alkaline Phosphatase Total Protein Albumin HOSPITAL COURSE: Date of Admission:03/22/19 Date of Discharge: 03/24/19 Minutes to complete discharge: 45 Discharge Summary Problems reviewed: Yes Reason For Visit: DIPLOPIA Current Active Problems Double vision (Acute) Condition: Improved - Instructions Diet, Activity, Other Instructions: Mr Hua: You were admitted to [facility] for double vision and have been ruled out for a stroke. During your stay, you were evaluated by a neurologist and a ballistics expert. Here are our recommendations: Double vision: Please continue taking the Aspirin 325mg DAILY. Please take Protonix daily with it to protect your stomach while on aspirin. You will need to follow up with your opthomologist and Dr. Maria. Please call Dr Maria's office and make an appointment for follow up. Please note that your carotid ultrasound was normal and your MRi was negative for stroke. Please follow up with your ballistics expert early next week for repeat blood work. Medications: Please note the Losartan was increased to Losartan 50mg daily. Thank you for allowing us to care for you. Adri Cedeño [employer] [facility] [phone] Referrals: Rajesh Wiley MD [Primary Care Provider] - Marissa Maria MD [Staff Physician] - 1 Week Disposition: HOME - Home Medications Comprehensive Discharge Medication List: Ambulatory Orders Cholecalciferol (Vitamin D3) [Vitamin D3] 250 unit PO DAILY 09/06/14 Docosahexanoic Acid/Epa [Fish Oil Softgel] 1 each PO DAILY 09/06/14 metFORMIN HCL [Glucophage -] 1,000 mg PO BID 09/06/14 Atorvastatin Ca [Lipitor] 40 mg PO DAILY 07/11/16 Losartan Potassium 25 mg PO DAILY 07/11/16 Multivitamin [One-Daily Multi-Vitamin] 1 each PO DAILY 03/22/19 Aspirin [ASA -] 325 mg PO DAILY #90 tablet 03/24/19 Atorvastatin Ca [Lipitor] 40 mg PO HS #0 tablet 03/24/19 Losartan Potassium [Cozaar -] 50 mg PO DAILY #90 tablet 03/24/19 Pantoprazole Sodium [Protonix] 40 mg PO DAILY #60 tablet. 03/24/19 This patient is new to me today: No Emergency Visit: Yes ED Registration Date: 03/22/19 Care time: The patient presented to the Emergency Department on the above date and was hospitalized for further evaluation of their emergent condition. Critical Care patient: No - Discharge Referral Referred to [facility] No
== END 2019-03-24 17:26 | disposition home or self-care (01) | DRG 123 ==
LOC: JER 13:50 → JERBED 17:23 → J4W 03-23 05:05
PROVIDERS: ATTEND Nurse Practitioner Family
DX: H49.21 Sixth [abducent] nerve palsy, right eye (principal); H53.2 Diplopia; I10 Essential (primary) hypertension; E11.9 Type 2 diabetes mellitus without complications; E78.5 Hyperlipidemia, unspecified; D45 Polycythemia vera; R51 Headache
CPT/HCPCS: 36415; 70450-TC; 70460-TC; 70551-TC; 80053; 80061; 82962; 83036; 83519; 83540; 83550; 83721; 83735; 84443; 85025; 85610; 85651; 85730; 86038; 86140; 86593; 93005; 93010; 93880-TC; 97116-GP; 97161-GP; 99285-25; J1644; J7030; Q9967

== ENCOUNTER 2020-07-08 17:09 | Emergency (ER) | payer OTHER, BC ==
[2020-07-08 17:31] VITALS: BP 117/76; PULSE 105; TEMP 98.2; BMI 34.0
[2020-07-08 18:56] LABS: BASO % 0.1 % (0-2.0); EOS % 0.1 % (0-4.5); HEMATOCRIT 36.6 % (35.4-49); HEMOGLOBIN 11.8 GM/dL (11.7-16.9); MCH 26.8 pg (25.7-33.7); MCHC 32.3 g/dl (32.0-35.9); MEAN CELL VOLUME 83.2 fl (80-96); MEAN PLT VOLUME 7.1 fl (7.5-11.1); MONO % 5.7 % (3.8-10.2); NEUT % 90.1 % (42.8-82.8); PLATELET COUNT 465 K/MM3 (134-434); RDW 17.6 % (11.9-15.9); WHITE BLOOD COUNT 12.6 K/mm3 (4.0-10.0)
[2020-07-08 19:29] LABS: CHLORIDE 103 mmol/L (98-107); SODIUM 133 mmol/L (136-145)
[2020-07-08 19:31] LABS: CALCIUM 8.7 mg/dL (8.5-10.1)
[2020-07-08 19:32] LABS: ANION GAP 9 MMOL/L (8-16); CO2 22 mmol/L (21-32); GLUCOSE,RANDOM 207 mg/dL (74-106)
[2020-07-08 19:35] LABS: SGPT/ALT 80 U/L (13-61)
[2020-07-08 19:36] LABS: SGOT/AST 31 U/L (15-37)
[2020-07-08 19:37] LABS: BILIRUBIN,TOTAL 0.4 mg/dL (0.2-1)
[2020-07-08 19:38] LABS: ALK PHOS 58 U/L (45-117)
== END 2020-07-08 20:49 | disposition home or self-care (01) ==
LOC: JER 17:09
DX: R42 Dizziness and giddiness (principal)
CPT/HCPCS: 36415; 80053; 82550; 82962; 83735; 84484; 85025; 86850; 86900; 86901; 93005; 93010; 99284-25

== ENCOUNTER 2021-10-01 06:32 | Day surgery (SDC) | payer OTHER, BC ==
[2021-09-26 16:07] VITALS: BMI 34.0
[2021-10-01 08:52] VITALS: TEMP 97.4
[2021-10-01 09:12] VITALS: PULSE 50; RESP 19
[2021-10-01 09:30] VITALS: BP 130/81
== END 2021-10-01 09:47 | disposition home or self-care (01) ==
LOC: JASU-ENDO 06:32
PROVIDERS: ATTEND Internal Medicine Gastroenterology
PROC: 0DBL8ZX Excision of Transverse Colon, Via Natural or Artificial Opening Endoscopic, Diagnostic (ICD-10-PCS; 2021-10-01)
PROC: 0DBN8ZX Excision of Sigmoid Colon, Via Natural or Artificial Opening Endoscopic, Diagnostic (ICD-10-PCS; 2021-10-01)
PROC: 0DBP8ZX Excision of Rectum, Via Natural or Artificial Opening Endoscopic, Diagnostic (ICD-10-PCS; 2021-10-01)
PROC: 0DBH8ZX Excision of Cecum, Via Natural or Artificial Opening Endoscopic, Diagnostic (ICD-10-PCS; principal; 2021-10-01 08:00)
DX: Z12.11 Encounter for screening for malignant neoplasm of colon (principal); Z86.010 Personal history of colon polyps; R19.5 Other fecal abnormalities; D12.0 Benign neoplasm of cecum; D12.5 Benign neoplasm of sigmoid colon; D12.3 Benign neoplasm of transverse colon; K62.1 Rectal polyp; E11.9 Type 2 diabetes mellitus without complications; Z79.84 Long term (current) use of oral hypoglycemic drugs
CPT/HCPCS: 82962; 88305-TC

== ENCOUNTER 2022-09-17 11:02 | Emergency (ER) | payer OTHER, BC ==
[2022-09-17 11:51] VITALS: TEMP 98; BMI 34.1
[2022-09-17 13:18] LABS: BASO % 0.7 % (0-2.0); EOS % 2.4 % (0-4.5); HEMATOCRIT 43.6 % (35.4-49); HEMOGLOBIN 13.6 GM/dL (11.7-16.9); MCH 31.5 pg (25.7-33.7); MCHC 31.2 g/dl (32.0-35.9); MEAN CELL VOLUME 101.1 fl (80-96); MEAN PLT VOLUME 6.4 fl (7.5-11.1); MONO % 8.2 % (3.8-10.2); NEUT % 75.7 % (42.8-82.8); PLATELET COUNT 234 10^3/uL (134-434); RBC 4.31 M/mm3 (4.00-5.60); RDW 14.8 % (11.9-15.9)
[2022-09-17 13:20] LABS: EPI CELLS 7 /uL (0-25.1); HYALINE CASTS 0 /uL (0-3.1); PH,URINE 6.5 (5.0-8.0); URINE APPEARANCE CLEAR; URINE BACTERIA 5 /uL (0-1359); URINE BILIRUBIN NEGATIVE (NEGATIVE); URINE COLOR YELLOW; URINE GLUCOSE (UA) TRACE (NEGATIVE); URINE KETONE TRACE (NEGATIVE); URINE LEUK ESTERASE NEGATIVE (NEGATIVE); URINE NITRITE NEGATIVE (NEGATIVE); URINE PROTEIN 2+ (NEGATIVE); URINE RBC 117 /uL (0-23.9); URINE WBC 17 /uL (0-25.8)
[2022-09-17 13:40] LABS: POTASSIUM 4.9 mmol/L (3.5-5.1)
[2022-09-17 13:42] LABS: CALCIUM 9.4 mg/dL (8.5-10.1)
[2022-09-17 13:43] LABS: ALBUMIN 3.8 g/dl (3.4-5.0); BLOOD UREA NITROGEN 16.2 mg/dL (7-18)
[2022-09-17 13:46] LABS: CREATININE 0.8 mg/dL (0.55-1.3)
[2022-09-17 13:47] LABS: BILIRUBIN,TOTAL 0.4 mg/dL (0.2-1); TOT PROT 7.1 g/dl (6.4-8.2)
[2022-09-17] MEDS ORDERED: CEPHALEXIN MONOHYDRATE 500 MG CAPSULE (UD) PO ONE (14:58)
[2022-09-17] MEDS ORDERED: CEPHALEXIN MONOHYDRATE 500 MG CAPSULE (UD) ONE (15:05)
[2022-09-17 15:33] VITALS: BP 146/72; PULSE 78; RESP 19
== END 2022-09-17 15:33 | disposition home or self-care (01) ==
LOC: JER 11:02
DX: R30.9 Painful micturition, unspecified (principal); R39.198 Other difficulties with micturition; R35.0 Frequency of micturition; R30.0 Dysuria; M54.9 Dorsalgia, unspecified; K59.00 Constipation, unspecified; R31.9 Hematuria, unspecified; N39.0 Urinary tract infection, site not specified
CPT/HCPCS: 36415; 74177-TC; 80053; 81003; 85025; 87086; 99285-25; C1887; Q9967